=== PATIENT | female | born 1995 ===

== ENCOUNTER 2021-01-19 01:21 | Emergency (ER) | payer SELFPAY ==
[2021-01-19 02:02] VITALS: BP 115/56
== END 2021-01-19 04:18 | disposition left against medical advice (07) ==
LOC: EDBD → ED 01:21
DX: M54.9 Dorsalgia, unspecified (principal); R51.9 Headache, unspecified; Z53.21 Procedure and treatment not carried out due to patient leaving prior to being seen by health care provider